=== PATIENT | female | born 1965 | race Caucasian/White ===

== ENCOUNTER 2018-10-24 07:59 | Outpatient (CLI) | payer BC, OTHER | END 2018-10-24 23:59 | disposition home or self-care (01) | LOC: CFH 07:59 | PROVIDERS: ATTEND Internal Medicine Cardiovascular Disease | DX: R94.31 Abnormal electrocardiogram [ECG] [EKG] (principal); I95.89 Other hypotension | CPT/HCPCS: 78452; 93017; A9502 ==